=== PATIENT | female | born 1980 | race Caucasian/White ===

== ENCOUNTER 2020-09-17 09:27 | Outpatient (REF) | payer OTHER, SELFPAY ==
[2020-09-17 11:32] LABS: Lithium 0.42 mmol/L (0.60-1.20)
[2020-09-17 11:45] LABS: Anion Gap 13 (12-20); Blood Urea Nitrogen 9 mg/dL (9-16); Calcium 9.3 mg/dL (8.4-10.2); Carbon Dioxide 25 mmol/L (22-29); Chloride 106 mmol/L (96-108); Estimated Glomerular Filt Rate > 60; Glucose Random 106 mg/dL (60-115); Potassium 4.4 mmol/L (3.3-5.1); Sodium 140 mmol/L (135-145)
[2020-09-17 12:12] LABS: Thyroid Stimulating Hormone 2.59 uIU/mL (0.32-4.0)
== END 2020-09-17 09:28 | disposition home or self-care (01) ==
LOC: HO.HMGCLDS 09:27
PROVIDERS: Nurse Practitioner Family; PCP Internal Medicine; Visit Provider Clinical Nurse Specialist Psychiatric/Mental Health, Adult
DX: R51.9 Headache, unspecified (principal); B37.3 Candidiasis of vulva and vagina; Z20.822 Contact with and (suspected) exposure to COVID-19; Z79.899 Other long term (current) drug therapy
CPT/HCPCS: 36415; 80048; 80178; 84443; U0003; U0005

== ENCOUNTER 2020-09-21 21:43 | Emergency (ER) | payer OTHER, SELFPAY ==
--- NOTE | ~2020-09-21 | XR_ITS ---
EXAMINATION: LEFT FOOT AND ANKLE 6 VIEWS CLINICAL INFORMATION: Pain. COMPARISON: 05/09/2020. TECHNIQUE: AP, lateral, oblique views of the left foot were obtained in addition to AP, lateral and oblique views of the left ankle. FINDINGS: There are no fractures or dislocations. There is mild soft tissue swelling overlying the lateral malleolus. No ankle joint effusion is identified. XR/XR foot LT min 3V IMPRESSION: Mild soft tissue swelling. No fracture or dislocation.
--- NOTE | ~2020-09-21 | XR_ITS ---
EXAMINATION: LEFT FOOT AND ANKLE 6 VIEWS CLINICAL INFORMATION: Pain. COMPARISON: 05/09/2020. TECHNIQUE: AP, lateral, oblique views of the left foot were obtained in addition to AP, lateral and oblique views of the left ankle. FINDINGS: There are no fractures or dislocations. There is mild soft tissue swelling overlying the lateral malleolus. No ankle joint effusion is identified. XR/XR ankle LT min 3V IMPRESSION: Mild soft tissue swelling. No fracture or dislocation.
[2020-09-21 22:59] VITALS: BP 102/60; PULSE 86; RESP 14; TEMP 36.9; O2SAT 99; BMI 25.7
[2020-09-22] VITALS: BP 133/67; PULSE 88; RESP 16; TEMP 36.3; O2SAT 96
[2020-09-22] MEDS: Ketorolac Tromethamine 30 MG/ML VIAL IM (00:35)
--- NOTE | 2020-09-22 01:01 | ED.LOWEXIN ---
HPI - Extremity Injury (Lower) General Chief Complaint: Extremity Injury, Lower Stated Complaint: ANKLE INJ Time Seen by Provider: 09/21/20 23:34 Source: patient Mode of arrival: ambulatory Limitations: no limitations History of Present Illness HPI Narrative: Patient presents to ED for left foot pain. Patient states pain on plantar aspect of foot that started today. Patient denies any recent trauma to the foot, swelling, redness, calf pain, coughing up blood, fever, chills, chest pain, or shortness of breath Related Data Previous Rx's Medication Instructions Recorded loratadine 10 mg tablet 10 mg PO DAILY #30 tab 06/16/20 levothyroxine 25 mcg tablet 25 mcg PO QAM #30 tab 07/14/20 omeprazole 20 mg capsule,delayed 20 mg PO QAM #30 cap 07/14/20 release fluconazole 150 mg tablet 150 mg PO Q3D #2 tab 09/17/20 tramadol 50 mg PO Q8H PRN #9 tab 09/22/20 Allergies Allergy/AdvReac Type Severity Reaction Status Date / Time ibuprofen [IBUPROFEN] AdvReac Unknown LITHIUM Verified 09/22/20 00:35 REACTION pollen Allergy Unknown Itchy Eyes Uncoded 09/21/20 22:59 Seafood Allergy Unknown UNKNOWN Uncoded 05/01/20 14:59 Review of Systems Review of Systems: Yes all other systems are reviewed and are negative Constitutional: Constitutional: Reports as per HPI and Reports no additional constitutional complaints Eyes: Eyes: Reports as per HPI and Reports no additional eye complaints ENT: Reports system reviewed and no additional complaints, except as documented and Reports as per HPI Cardiovascular: Cardiovascular: Reports as per HPI and Reports no additional cardiovascular complaints Respiratory: Respiratory: Reports as per HPI and Reports no additional respiratory complaints Gastrointestinal: Gastrointestinal: Reports as per HPI and Reports no additional gastrointestinal complaints Genitourinary: Genitourinary: Reports no additional female genitourinary complaints and Reports as per HPI Musculoskeletal: Musculoskeletal: Reports no additional musculoskeletal complaints and Reports as per HPI Comments: Left foot pain Neurologic: Reports system reviewed and no additional complaints, except as documented and Reports as per HPI Psychiatric: Psychiatric: Reports no additional psychiatric complaints and Reports as per HPI PMFSH Past Medical History Medical History Ankle weakness Lung disease Smoker Social History Social History Smoking Status: Current every day smoker Use of substances other than those prescribed or required for medical reasons: No Advance Directives: No Advance Directives Information Provided: No Physical Exam Vital Signs: Vital Signs: Last Vital Signs Temp 97.3 F 09/22/20 00:00 Pulse 88 09/22/20 00:00 Resp 16 09/22/20 00:00 BP 133/67 09/22/20 00:00 Pulse Ox 96 09/22/20 00:00 Body Mass Index 25.7 Const: General: cooperative, healthy appearing, comfortable, no acute distress, well developed, alert, awake and Physically active Orientation/consciousness: patient oriented x3 HENMT: Head: Yes normal to inspection, Yes No palpable skull fracture present, Yes normocephalic, Yes atraumatic and No abrasion Eyes: General: appearance normal, both eyes and all related structures Neck: Neck: Yes normal visual inspection, Yes full ROM, Yes no lymphadenopathy, Yes no meningeal signs, Yes trachea midline, Yes supple and No tender Chest: Chest palpation & inspection: normal inspection of the chest and normal palpation of entire chest wall Resp: Effort & Inspection: normal respiratory effort and able to speak in complete sentences Auscultation: clear to auscultation bilaterally Cardio: Jugular venous distension: no JVD Heart sounds: S1 normal heart sound present and S2 normal heart sound present GI: Inspection: Yes normal to inspection and No abdominal wall ecchymosis Palpation (GI): Soft to palpation, not firm, nontender, no guarding and not rigid : General: No CVA tenderness and Yes no CVA tenderness Back/Spine/Pelvis: Back: no CVA tenderness and No CVA tenderness Skin: General skin exam: no rashes or lesions noted and elasticity normal Neuro: General: patient oriented x3, no meningeal signs and CN's II-XI intact bilaterally Cranial nerves: Yes CN's II-XII intact bilaterally Extrem: Other: Left lower extremity: Negative for swelling of left lower extremity. Negative for any redness. Negative for any calf pain, or bluish/reddish discoloration of lower extremity. Positive for tenderness on plantar aspect of the foot. Positive for palpable pulses of left foot. Neuro/vascular/motor exam is intact of left foot. Left foot negative for any ulcer, wound, redness, or swelling. Right lower extremity normal with motor/nose/vascular exam intact. Left foot positive for significant arch in the plantar aspect ( patient states this is defect). Psych: Appearance: grossly normal, well kempt and not disheveled Course Course Course Narrative: Left foot pain Reevaluation(s) Reevaluation #1: X-rays negative for any fracture. Different just plantar fasciitis. Physical exam does not indicate DVT, cellulitis, or arterial occlusion. MDM - Extremity Injury (Lower) MDM Narrative Medical decision making narrative: Foot pain. Plantar fasciitis Discharge Plan Discharge Clinical Impression: Foot arch pain Patient Disposition: Home, Self-Care Instructions: Plantar Fasciitis (ED) Additional Instructions: Return to the ED for worsening pain, swelling of lower extremities, calf pain, coughing up blood, redness of lower extremity, fever, chills, or any other concerning symptoms. Please follow-up with your PCP Prescriptions: New tramadol 50 mg tablet 50 mg PO Q8H PRN (Reason: pain) Qty: 9 RF: 0 No Action loratadine 10 mg tablet 10 mg PO DAILY Qty: 30 RF: 1 levothyroxine 25 mcg tablet 25 mcg PO QAM Qty: 30 RF: 4 omeprazole 20 mg capsule,delayed release(DR/EC) 20 mg PO QAM Qty: 30 RF: 4 fluconazole [Diflucan] 150 mg tablet 150 mg PO Q3D Qty: 2 RF: 0 Referrals: Sarah Rodriguez MD [Primary Care Provider] - 2 days (Plantar foot pain. Possible plantar fasciitis. X-ray negative for any fracture, arthritis, heel spurs) Interventions: ED Discharge Assessment Last Done: 09/22/20 01:16 Discharge Date/Time: 09/22/20 01:16 Print Language: Argentine
== END 2020-09-22 01:16 | disposition home or self-care (01) ==
PROVIDERS: Emergency Provider Internal Medicine; PCP Internal Medicine
DX: M79.672 Pain in left foot (principal); M72.2 Plantar fascial fibromatosis; F17.200 Nicotine dependence, unspecified, uncomplicated
CPT/HCPCS: 73610; 73630; 96372; 99284; J1885

== ENCOUNTER 2020-12-03 14:49 | Outpatient (REF) | payer OTHER, SELFPAY ==
[2020-12-04 09:36] LABS: CT PCR NOT DETECTED (Not Detect.); NG PCR NOT DETECTED (Not Detect.)
[2020-12-04 09:53] LABS: BV Int Neg Control Negative (Negative); BV Int Pos Control Positive (Positive)
== END 2020-12-03 14:50 | disposition home or self-care (01) ==
LOC: HO.LAB 14:49
PROVIDERS: Visit Provider Obstetrics & Gynecology
DX: Z01.419 Encounter for gynecological examination (general) (routine) without abnormal findings (principal); R10.9 Unspecified abdominal pain; R14.0 Abdominal distension (gaseous); K59.00 Constipation, unspecified; N39.46 Mixed incontinence; F17.210 Nicotine dependence, cigarettes, uncomplicated; Z11.3 Encounter for screening for infections with a predominantly sexual mode of transmission; Z11.8 Encounter for screening for other infectious and parasitic diseases
CPT/HCPCS: 87480; 87491; 87510; 87591; 87660

== ENCOUNTER 2020-12-19 16:04 | Emergency (ER) | payer OTHER, SELFPAY ==
--- NOTE | ~2020-12-19 | XR_ITS ---
EXAMINATION: BILATERAL FEET CLINICAL INFORMATION: Foot pain and swelling COMPARISON: Left foot films 09/21/2020, 05/09/2020 Right ankle films 04/30/2019 TECHNIQUE: 3 views each foot FINDINGS: Left: There is mild hallux valgus. Mild pes cavum is present. No fracture or dislocation is seen. Right: There is mild hallux valgus. Mild pes cavum is present. No fractures or dislocations are seen. XR/XR foot LT min 3V IMPRESSION: No acute finding in the feet to account for the patient's pain and swelling. Mild hallux valgus and pes cavus is present bilaterally. No interval change when compared to prior studies.
--- NOTE | ~2020-12-19 | XR_ITS ---
EXAMINATION: BILATERAL FEET CLINICAL INFORMATION: Foot pain and swelling COMPARISON: Left foot films 09/21/2020, 05/09/2020 Right ankle films 04/30/2019 TECHNIQUE: 3 views each foot FINDINGS: Left: There is mild hallux valgus. Mild pes cavum is present. No fracture or dislocation is seen. Right: There is mild hallux valgus. Mild pes cavum is present. No fractures or dislocations are seen. XR/XR foot RT min 3V IMPRESSION: No acute finding in the feet to account for the patient's pain and swelling. Mild hallux valgus and pes cavus is present bilaterally. No interval change when compared to prior studies.
[2020-12-19 16:11] VITALS: BP 100/80; PULSE 87; O2SAT 97
[2020-12-19 16:25] VITALS: BP 109/75; PULSE 77; RESP 16; TEMP 36.6; O2SAT 98; BMI 23.5
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
[2020-12-19] MEDS: HYDROcodone Bit/Acetam 5/325 TABLET 1 TAB PO (17:11)
--- NOTE | 2020-12-19 17:13 | PC.NURSE ---
PT WAS SEEN BY VERONICA HARRIS AND MADE AWARE OF ED CARE PLAN MEDICATED CHARTED FOR PAIN AND AMBULATORY TO BATHROOM WITH W WALKER AND SUPERVISION
[2020-12-19 19:23] VITALS: BP 102/57; PULSE 66; RESP 16; TEMP 36.4; O2SAT 98
== END 2020-12-19 20:08 | disposition home or self-care (01) ==
PROVIDERS: Emergency Provider Emergency Medicine
DX: M79.672 Pain in left foot (principal); M79.671 Pain in right foot; R60.0 Localized edema; M54.5 Low back pain; L84 Corns and callosities; F17.200 Nicotine dependence, unspecified, uncomplicated
CPT/HCPCS: 73630; 99283

== ENCOUNTER 2021-01-22 15:47 | Outpatient (REF) | payer OTHER, SELFPAY ==
--- NOTE | ~2021-01-22 | MM_ITS ---
EXAMINATION: MM SCREENING DIGITAL BREAST TOMOSYNTHESIS, BILATERAL CLINICAL INFORMATION: Screening. Asymptomatic. The lifetime risk of breast cancer based on the Tyrer-Cuzick Model is 12.3%. COMPARISON: Mammography: None TECHNIQUE: Digital breast tomosynthesis is performed in both the craniocaudal and mediolateral oblique views along with computer-aided detection (CAD). Synthesized 2D images are generated from the tomosynthesis. FINDINGS: There are scattered areas of fibroglandular density (ACR BI-RADS breast composition Category b). No abnormal dominant mass or suspicious grouping of microcalcifications is seen within the right breast. Within the medial aspect of the left breast approximately 6 cm from the nipple there is a lobular contour density measuring approximately 1.4 x 0.9 cm in size. No associated spiculation or microcalcifications. Just superior to this there is noted to be an intramammary lymph node. Ultrasound examination of the left breast is recommended. MM/MM tomosynthesis screening BI IMPRESSION: Left breast mass lesion for which ultrasound evaluation is recommended. ASSESSMENT: BI-RADS 0: Incomplete - Need Additional Imaging Evaluation RECOMMENDATION: 1. Additional views of the left breast 2. Targeted ultrasound if warranted after review of the additional views. 3. Radiology department staff will contact the patient for additional imaging. This patient's information was entered into a reminder system with a target due date for their next mammogram.
== END 2021-01-22 15:48 | disposition home or self-care (01) ==
LOC: HO.MAMMO 15:47
PROVIDERS: Visit Provider Obstetrics & Gynecology
DX: Z12.31 Encounter for screening mammogram for malignant neoplasm of breast (principal)
CPT/HCPCS: 77063; 77067

== ENCOUNTER 2021-02-06 13:59 | Outpatient (REF) | payer OTHER, SELFPAY ==
--- NOTE | ~2021-02-06 | MM_ITS ---
EXAMINATION: MM DIAGNOSTIC DIGITAL BREAST TOMOSYNTHESIS, LEFT US DIAGNOSTIC ULTRASOUND BREAST, LEFT CLINICAL INFORMATION: Recall from baseline screening for ill-defined nodule upper lateral left breast. COMPARISON: Mammography: 01/22/2021 TECHNIQUE: Digital breast tomosynthesis is performed. 2D images are generated from the tomosynthesis. The following views are obtained: 3-D spot CC, 3-D spot ML Ultrasound left breast is targeted to the medial and upper quadrants. FINDINGS: There are scattered areas of fibroglandular density (ACR BI-RADS breast composition Category b). The additional views confirm a bilobed nodule upper inner quadrant left breast mid depth measuring approximately 1.1 x 0.7 cm. Ultrasound demonstrates bilobed simple cyst versus 2 adjacent cysts 11:00 position 6 cm from nipple with overall size 1.1 x 0.7 x 0.4 cm. There is increased through-transmission of sound and no associated color flow. No solid mass or architectural abnormality. Results are discussed with the patient at time of visit. MM/MM tomosynthesis added views L IMPRESSION: Incidental cyst 11:00 position mid depth 1.1 x 0.7 x 0.4 cm corresponding to finding on recent baseline screening mammography. ASSESSMENT: BI-RADS 2: Benign RECOMMENDATION: Routine annual mammography screening. This patient's information was entered into a reminder system with a target due date for their next mammogram.
== END 2021-02-06 14:00 | disposition home or self-care (01) ==
LOC: HO.MAMMO 13:59
PROVIDERS: Visit Provider Obstetrics & Gynecology
DX: R92.2 Inconclusive mammogram (principal)
CPT/HCPCS: 76642; 77061; 77065

== ENCOUNTER → 2021-03-10 14:06 | Outpatient (BNVA) | payer OTHER, SELFPAY | DX: N39.46 Mixed incontinence (principal) | CPT/HCPCS: 51798; 99202 ==

== ENCOUNTER 2021-04-02 10:02 | Outpatient (REF) | payer OTHER, SELFPAY ==
[2021-04-02 11:42] LABS: Lithium 0.46 mmol/L (0.60-1.20)
[2021-04-02 12:03] LABS: Anion Gap 11 (12-20); Blood Urea Nitrogen 6 mg/dL (9-16); Calcium 9.5 mg/dL (8.4-10.2); Carbon Dioxide 24 mmol/L (22-29); Chloride 109 mmol/L (96-108); Estimated Glomerular Filt Rate > 60; Glucose Fasting 105 mg/dL (60-99); Potassium 4.4 mmol/L (3.3-5.1); Sodium 140 mmol/L (135-145)
[2021-04-02 12:08] LABS: Thyroid Stimulating Hormone 2.76 uIU/mL (0.32-4.0)
== END 2021-04-02 10:03 | disposition home or self-care (01) ==
LOC: HO.HMGCLDS 10:02
PROVIDERS: PCP Internal Medicine; Visit Provider Clinical Nurse Specialist Psychiatric/Mental Health, Adult
DX: Z79.899 Other long term (current) drug therapy (principal)
CPT/HCPCS: 36415; 80048; 80178; 84443

== ENCOUNTER 2021-04-08 12:55 | Outpatient (AMB) | payer OTHER, SELFPAY ==
[2021-04-08 13:07] VITALS: BP 124/64; PULSE 72; TEMP 36.4; BMI 23.5
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
== END 2021-04-08 13:36 | disposition home or self-care (01) ==
LOC: HO.HUSH 12:55
DX: Z13.9 Encounter for screening, unspecified (principal)
CPT/HCPCS: 99213

== ENCOUNTER → 2021-04-08 12:55 | Outpatient (BNVA) | payer OTHER, SELFPAY | DX: N39.46 Mixed incontinence (principal) | CPT/HCPCS: 51798; 99212 ==

== ENCOUNTER 2021-07-13 12:20 | Emergency (ER) | payer OTHER, SELFPAY ==
--- NOTE | ~2021-07-13 | XR_ITS ---
EXAMINATION: LEFT ANKLE AND LEFT FOOT. CLINICAL INFORMATION: Low back pain, status post injury. COMPARISON: None TECHNIQUE: Left ankle 4 views. Left shoulder 3 views. FINDINGS: Left ankle: the ankle mortise and subtalar joints are normal. No visible acute fracture or dislocation seen. The soft tissues are normal. Left toe: There is a nondisplaced fracture proximal and great toe first digit with mild soft tissue swelling. No additional bony abnormality seen. XR/XR ankle LT min 3V IMPRESSION: Nondisplaced fracture proximal end great toe first digit with mild soft tissue swelling. Unremarkable left ankle exam.
--- NOTE | ~2021-07-13 | XR_ITS ---
EXAMINATION: LEFT ANKLE AND LEFT FOOT. CLINICAL INFORMATION: Low back pain, status post injury. COMPARISON: None TECHNIQUE: Left ankle 4 views. Left shoulder 3 views. FINDINGS: Left ankle: the ankle mortise and subtalar joints are normal. No visible acute fracture or dislocation seen. The soft tissues are normal. Left toe: There is a nondisplaced fracture proximal and great toe first digit with mild soft tissue swelling. No additional bony abnormality seen. XR/XR toe LT min 2V IMPRESSION: Nondisplaced fracture proximal end great toe first digit with mild soft tissue swelling. Unremarkable left ankle exam.
[2021-07-13 13:43] VITALS: BP 120/87; PULSE 75; RESP 18; TEMP 36.6; BMI 28.3
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
== END 2021-07-13 15:11 | disposition home or self-care (01) ==
PROVIDERS: Emergency Provider Emergency Medicine
DX: S92.415A Nondisplaced fracture of proximal phalanx of left great toe, initial encounter for closed fracture (principal); W10.9XXA Fall (on) (from) unspecified stairs and steps, initial encounter; Y93.9 Activity, unspecified; Y92.009 Unspecified place in unspecified non-institutional (private) residence as the place of occurrence of the external cause; Y99.9 Unspecified external cause status; Z79.899 Other long term (current) drug therapy
CPT/HCPCS: 73610; 73660; 99283

== ENCOUNTER 2022-01-05 22:09 | Emergency (ER) | payer OTHER, SELFPAY ==
--- NOTE | 2022-01-05 | ECG_ITS ---
Test Reason : cp Blood Pressure : / mmHG Vent. Rate : 064 BPM Atrial Rate : 064 BPM P-R Int : 138 ms QRS Dur : 086 ms QT Int : 410 ms P-R-T Axes : 018 007 094 degrees QTc Int : 422 ms Normal sinus rhythm Nonspecific T wave abnormality Abnormal ECG When compared with ECG of 07-FEB-2020 20:45, Inverted T waves have replaced nonspecific T wave abnormality in Lateral leads Referred By: Generic ED Physician Electronically Signed By:Tae Givens
--- NOTE | ~2022-01-05 | XR_ITS ---
EXAMINATION: XR CHEST CLINICAL INFORMATION: Chest pain COMPARISON: Chest x-ray 02/07/2020 TECHNIQUE: Frontal view of the chest was obtained. 11:35 PM FINDINGS: No significant abnormality is noted involving the heart, lungs, mediastinum, bony thorax or soft tissues. XR/XR chest 1V IMPRESSION: Unremarkable examination.
[2022-01-05 22:18] VITALS: BP 129/78; PULSE 65; RESP 18; TEMP 36.6; O2SAT 96; BMI 25.0
[2022-01-05 22:40] LABS: MANUAL DIFF FLAG NO
[2022-01-05 22:42] LABS: Basophils Percent Auto 0.3 % (0-2); Eosinophils Absolute Auto 0.1 X10*3/uL (0.0-0.4); Eosinophils Percent Auto 1.3 % (0-4); Hematocrit 43.3 % (37.0-47.0); Hemoglobin 14.2 g/dl (12.0-16.0); Imm Gran Abs Auto 0.02 X10*3/uL (0.00-0.03); Imm Gran Pct Auto 0.3 % (0.0-0.4); Lymphocytes Absolute Auto 1.8 X10*3/uL (1.2-4.9); Lymphocytes Percent Auto 29.3 % (20-40); Mean Corpuscular HGB Conc 32.8 g/dl (31.0-35.0); Mean Corpuscular Hemoglobin 31.3 pg (27.0-33.0); Mean Corpuscular Volume 95.4 fL (80.0-98.0); Mean Platelet Volume 10.5 fL (9.4-12.3); Monocytes Absolute Auto 0.4 X10*3/uL (0.1-1.2); Monocytes Percent Auto 7.1 % (2-11); Neutrophils Absolute Auto 3.9 x10*3/uL (2.0-8.3); Neutrophils Percent Auto 61.7 % (45-73); Platelet Count 227 X10*3/uL (160-400); Red Blood Count 4.54 X10*6/uL (4.20-5.50); Red Cell Distribution Width 12.7 % (11.0-16.0); White Blood Count 6.2 X10*3/uL (4.8-10.8)
[2022-01-05 23:02] LABS: Alanine Aminotransferase 9 U/L (0-31); Albumin Level 4.2 g/dL (3.5-5.0); Alkaline Phosphatase 85 U/L (39-117); Anion Gap 11 (12-20); Aspartate Amino Transferase 14 U/L (5-31); Bilirubin Total 0.3 mg/dL (0.0-1.0); Blood Urea Nitrogen 5 mg/dL (9-16); Calcium 9.7 mg/dL (8.4-10.2); Carbon Dioxide 26 mmol/L (22-29); Chloride 107 mmol/L (96-108); Creatinine Clr Calc Pharmacy 65.9; Estimated Glomerular Filt Rate > 60; Glucose Random 110 mg/dL (60-115); Potassium 4.5 mmol/L (3.3-5.1); Sodium 139 mmol/L (135-145); Total Protein 6.7 g/dL (6.5-8.0)
[2022-01-05 23:07] LABS: Troponin-I High Sensitivity < 3.5 ng/L (<3.5-17.0)
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
[2022-01-06] MEDS: LORazepam 2 MG/ML VIAL 0.5 MG IVPUSH (00:33)
[2022-01-06] MEDS: guaiFEN/Codeine SF 200/20/10ML 10 ML LIQUID PO (00:35)
[2022-01-06 00:43] LABS: COVID-19 Test Negative (Negative); IDNOW Serial# 16C4AD1C; Influenza A Negative (Negative); Influenza B2 Negative (Negative)
--- NOTE | 2022-01-06 01:30 | PC.NURSE ---
Per Dr. Cobian, pt okay to discharge once she wakes up.
[2022-01-06] MEDS: Azithromycin 500 MG TABLET PO (02:08)
[2022-01-06 02:15] VITALS: BP 129/63; PULSE 70; RESP 18; TEMP 37.1; O2SAT 99
== END 2022-01-06 02:16 | disposition home or self-care (01) ==
PROVIDERS: Emergency Provider Internal Medicine
DX: J40 Bronchitis, not specified as acute or chronic (principal); R07.89 Other chest pain; R05.9 Cough, unspecified; R20.0 Anesthesia of skin; F41.9 Anxiety disorder, unspecified; Z20.822 Contact with and (suspected) exposure to COVID-19; Z79.899 Other long term (current) drug therapy
CPT/HCPCS: 36415; 71045; 80053; 84484; 85025; 87502; 87635; 93005; 96374; 99282; 99284; J2060

== ENCOUNTER 2022-02-09 18:10 | Emergency (ER) | payer OTHER, SELFPAY ==
--- NOTE | ~2022-02-09 | XR_ITS ---
EXAMINATION: XR shoulder RT min 2V, XR elbow RT 2V CLINICAL INFORMATION: Reason for Exam pain/limited ROM COMPARISON: Right shoulder radiographs 05/01/2014 TECHNIQUE: AP and lateral views right elbow; 3 views right shoulder FINDINGS: Right elbow: No fracture, dislocation, or elbow joint effusion. The joint spaces are maintained. No enthesophyte formation. No osteophytes. No osseous lesion. Right shoulder: No fracture or dislocation. Glenohumeral joint space and acromiohumeral interval are maintained. No periarticular calcifications. AC joint is congruent and intact. Visualized right upper lung is grossly clear. XR/XR elbow RT 2V IMPRESSION: 1. No acute osseous injury or other osseous abnormality at the right elbow or shoulder.
--- NOTE | ~2022-02-09 | XR_ITS ---
EXAMINATION: XR HUMERUS, RIGHT CLINICAL INFORMATION: Injury COMPARISON: None TECHNIQUE: AP and lateral views of the right humerus. FINDINGS: The bones and soft tissues are normal. No fracture. Imaged portions of the shoulder and elbow are unremarkable. XR/XR humerus RT IMPRESSION: Normal right humerus.
--- NOTE | ~2022-02-09 | XR_ITS ---
EXAMINATION: XR shoulder RT min 2V, XR elbow RT 2V CLINICAL INFORMATION: Reason for Exam pain/limited ROM COMPARISON: Right shoulder radiographs 05/01/2014 TECHNIQUE: AP and lateral views right elbow; 3 views right shoulder FINDINGS: Right elbow: No fracture, dislocation, or elbow joint effusion. The joint spaces are maintained. No enthesophyte formation. No osteophytes. No osseous lesion. Right shoulder: No fracture or dislocation. Glenohumeral joint space and acromiohumeral interval are maintained. No periarticular calcifications. AC joint is congruent and intact. Visualized right upper lung is grossly clear. XR/XR shoulder RT min 2V IMPRESSION: 1. No acute osseous injury or other osseous abnormality at the right elbow or shoulder.
[2022-02-09 19:48] VITALS: BP 126/74; PULSE 66; RESP 15; TEMP 36.2; O2SAT 97; BMI 25.0
[2022-02-09] MEDS: Acetaminophen 325 MG TABLET 650 MG PO (19:54)
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
== END 2022-02-10 | disposition home or self-care (01) ==
PROVIDERS: Emergency Provider Emergency Medicine; PCP Internal Medicine
DX: S53.401A Unspecified sprain of right elbow, initial encounter (principal); S43.401A Unspecified sprain of right shoulder joint, initial encounter; M25.511 Pain in right shoulder; W01.0XXA Fall on same level from slipping, tripping and stumbling without subsequent striking against object, initial encounter; Y93.9 Activity, unspecified; Y92.9 Unspecified place or not applicable; Y99.9 Unspecified external cause status; Z79.899 Other long term (current) drug therapy
CPT/HCPCS: 73030; 73060; 73070; 99283

== ENCOUNTER 2022-09-19 16:44 | Emergency (ER) | payer OTHER, SELFPAY ==
--- NOTE | ~2022-09-19 | XR_ITS ---
EXAMINATION: XR CLAVICLE, RIGHT CLINICAL INFORMATION: Pain following fall COMPARISON: None TECHNIQUE: 2 views of right clavicle. FINDINGS: The clavicle is intact. The bones and soft tissues are normal. No fracture. Acromioclavicular joint alignment is anatomic. XR/XR clavicle RT IMPRESSION: Normal right clavicle.
--- NOTE | ~2022-09-19 | XR_ITS ---
EXAMINATION: RIGHT HUMERUS AND RIGHT SHOULDER CLINICAL INFORMATION: Pain following fall COMPARISON: None TECHNIQUE: 3 views of right humerus and 3 views of right shoulder FINDINGS: Bones are well-mineralized there is no evidence of fracture or dislocation. Soft tissues are normal XR/XR humerus RT IMPRESSION: No fracture seen
--- NOTE | ~2022-09-19 | XR_ITS ---
EXAMINATION: XR ELBOW, RIGHT CLINICAL INFORMATION: Pain COMPARISON: None TECHNIQUE: AP, lateral, and oblique views of the right elbow. FINDINGS: The bones and soft tissues are normal. No fracture or joint effusion. Alignment is anatomic. Joint spaces are maintained. XR/XR elbow RT min 3V IMPRESSION: Normal right elbow.
--- NOTE | ~2022-09-19 | XR_ITS ---
EXAMINATION: RIGHT HUMERUS AND RIGHT SHOULDER CLINICAL INFORMATION: Pain following fall COMPARISON: None TECHNIQUE: 3 views of right humerus and 3 views of right shoulder FINDINGS: Bones are well-mineralized there is no evidence of fracture or dislocation. Soft tissues are normal XR/XR shoulder RT min 2V IMPRESSION: No fracture seen
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
[2022-09-19 17:05] VITALS: BP 136/83; PULSE 65; RESP 18; TEMP 36.2; O2SAT 99; BMI 27.4
== END 2022-09-19 18:51 | disposition home or self-care (01) ==
LOC: HO.ED 18:47
PROVIDERS: Emergency Provider Internal Medicine
DX: S46.911A Strain of unspecified muscle, fascia and tendon at shoulder and upper arm level, right arm, initial encounter (principal); M79.621 Pain in right upper arm; W01.0XXA Fall on same level from slipping, tripping and stumbling without subsequent striking against object, initial encounter; Y93.9 Activity, unspecified; Y92.9 Unspecified place or not applicable; Y99.9 Unspecified external cause status
CPT/HCPCS: 73000; 73030; 73060; 73080; 99282; 99283

== ENCOUNTER 2023-07-29 11:42 | Outpatient (AMB) | payer OTHER, SELFPAY ==
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
[2023-07-29 12:21] VITALS: BP 100/68; PULSE 62; O2SAT 99; BMI 28.0
== END 2023-07-29 15:31 | disposition home or self-care (01) ==
PROVIDERS: Visit Provider Internal Medicine
DX: H91.93 Unspecified hearing loss, bilateral (principal)
CPT/HCPCS: 99213

== ENCOUNTER 2023-08-25 10:04 | Outpatient (REF) | payer OTHER, SELFPAY ==
[2023-08-25 13:33] LABS: Anion Gap 10 (12-20); Blood Urea Nitrogen 8 mg/dL (9-16); Calcium 9.9 mg/dL (8.4-10.2); Carbon Dioxide 28 mmol/L (22-29); Chloride 107 mmol/L (96-108); Estimated Glomerular Filt Rate > 60; Glucose Random 107 mg/dL (60-115); Potassium 4.3 mmol/L (3.3-5.1); Sodium 141 mmol/L (135-145)
[2023-08-25 13:36] LABS: Lithium 0.53 mmol/L (0.60-1.20)
[2023-08-25 13:49] LABS: Thyroid Stimulating Hormone 2.83 uIU/mL (0.32-4.0)
== END 2023-08-25 10:05 | disposition home or self-care (01) ==
LOC: HO.HMGCLDS 10:04
PROVIDERS: PCP Internal Medicine; Visit Provider Clinical Nurse Specialist Psychiatric/Mental Health, Adult
DX: Z79.899 Other long term (current) drug therapy (principal)
CPT/HCPCS: 36415; 80048; 80178; 84443

== ENCOUNTER 2023-09-28 15:41 | Outpatient (REF) | payer OTHER, SELFPAY | END 2023-09-28 15:42 | disposition home or self-care (01) | LOC: HO.SH 15:41 | PROVIDERS: Visit Provider Internal Medicine | DX: Z01.10 Encounter for examination of ears and hearing without abnormal findings (principal); H90.12 Conductive hearing loss, unilateral, left ear, with unrestricted hearing on the contralateral side | CPT/HCPCS: 92557; 92567 ==

== ENCOUNTER 2024-11-01 13:44 | Outpatient (AMB) | payer OTHER, SELFPAY ==
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
[2024-11-01 13:52] VITALS: BP 118/70; PULSE 83; TEMP 37.1; O2SAT 96
== END 2024-11-01 14:26 | disposition home or self-care (01) ==
PROVIDERS: PCP Internal Medicine; Visit Provider Physician Assistant
DX: B34.9 Viral infection, unspecified (principal); H66.002 Acute suppurative otitis media without spontaneous rupture of ear drum, left ear

== ENCOUNTER 2024-11-01 13:44 | Outpatient (REF) | payer OTHER, SELFPAY ==
--- NOTE | ~2024-11-01 | XR_ITS ---
EXAMINATION: XR CHEST 2 VIEWS HISTORY: R05.9 - Cough, unspecified COMPARISON: Comparison is made with the prior examination dated 01/05/2022. FINDINGS: PA and lateral views of the chest are submitted. There are scattered groundglass and interstitial opacities in the right upper and left midlung zones. This may represent viral or atypical pneumonia. There is no pleural effusion, pneumothorax, or pulmonary vascular congestion. The heart is normal in size. There is degenerative disc disease of the spine. XR/XR chest 2V IMPRESSION: Scattered groundglass and interstitial opacities which may represent viral or atypical pneumonia. Electronically signed by: Rahul Posadas MD 11/01/2024 02:51 PM EDT
[2024-11-01 20:24] LABS: Influenza A PCR NEGATIVE (Negative); Influenza B PCR NEGATIVE (Negative); Resp Syncy Virus RNA Qual PCR NEGATIVE (Negative); SARS COV2 PCR INHOUSE NEGATIVE (Negative)
== END 2024-11-01 13:45 | disposition home or self-care (01) ==
LOC: HO.LAB 13:44
PROVIDERS: PCP Internal Medicine; Visit Provider Physician Assistant
DX: B34.9 Viral infection, unspecified (principal); H66.002 Acute suppurative otitis media without spontaneous rupture of ear drum, left ear; R05.9 Cough, unspecified; R09.89 Other specified symptoms and signs involving the circulatory and respiratory systems
CPT/HCPCS: 0241U; 71046; 99212

== ENCOUNTER → 2024-11-01 14:13 | Outpatient (BNV) | payer OTHER, SELFPAY | PROVIDERS: PCP Internal Medicine; Visit Provider Radiology Diagnostic Radiology | DX: R05.9 Cough, unspecified (principal) | CPT/HCPCS: 71046 ==

== ENCOUNTER 2025-01-31 15:14 | Outpatient (AMB) | payer OTHER, SELFPAY ==
[2025-01-31 15:22] VITALS: BP 100/68; PULSE 80; TEMP 37; O2SAT 97; BMI 27.7
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
== END 2025-01-31 16:06 | disposition home or self-care (01) ==
PROVIDERS: PCP Internal Medicine; Visit Provider Nurse Practitioner Family
DX: S80.01XA Contusion of right knee, initial encounter (principal)

== ENCOUNTER 2025-01-31 15:14 | Outpatient (REF) | payer OTHER, SELFPAY ==
--- NOTE | ~2025-01-31 | XR_ITS ---
EXAMINATION: XR KNEE, RIGHT CLINICAL INFORMATION: S80.01XA - Contusion of right knee, initial encounter COMPARISON: None available. TECHNIQUE: Four views of the right knee. FINDINGS: No fracture or joint effusion. Alignment is anatomic. Joint spaces are maintained. No abnormal soft tissue calcification. XR/XR knee RT 4V IMPRESSION: No acute bony abnormalities. No joint effusion. Electronically signed by: Maynor Marina MD 01/31/2025 04:16 PM EDT
== END 2025-01-31 15:15 | disposition home or self-care (01) ==
LOC: HO.HMGCX 15:14
PROVIDERS: PCP Internal Medicine; Visit Provider Nurse Practitioner Family
DX: S80.01XA Contusion of right knee, initial encounter (principal)
CPT/HCPCS: 73564; 99212

== ENCOUNTER → 2025-01-31 15:57 | Outpatient (BNV) | payer OTHER, SELFPAY | PROVIDERS: PCP Internal Medicine; Visit Provider Radiology Diagnostic Radiology | DX: S80.01XA Contusion of right knee, initial encounter (principal) | CPT/HCPCS: 73564 ==

== ENCOUNTER 2025-05-21 17:48 | Emergency (ER) | payer OTHER, SELFPAY ==
[2025-05-21 17:55] VITALS: BP 130/73; PULSE 86; RESP 18; TEMP 37; O2SAT 97; BMI 27.9
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
[2025-05-21 18:18] LABS: MANUAL DIFF FLAG NO
[2025-05-21 18:27] LABS: Hematocrit 41.9 % (37.0-47.0); Hemoglobin 13.8 g/dl (12.0-16.0); Imm Gran Abs Auto 0.02 X10*3/uL (0.00-0.03); Imm Gran Pct Auto 0.3 % (0.0-0.4); Lymphocytes Absolute Auto 2.1 X10*3/uL (1.2-4.9); Mean Corpuscular HGB Conc 32.9 g/dl (31.0-35.0); Mean Corpuscular Hemoglobin 30.7 pg (27.0-33.0); Mean Corpuscular Volume 93.3 fL (80.0-98.0); NRBC Abs Auto 0.000 X10*3/uL (0.0-0.012); NRBC Pct Auto 0.0 /100WBC (0.0-0.2); Platelet Count 267 X10*3/uL (160-400); Red Blood Count 4.49 X10*6/uL (4.20-5.50); White Blood Count 7.3 X10*3/uL (4.8-10.8)
[2025-05-21 18:33] LABS: Alanine Aminotransferase 12 U/L (0-31); Albumin Level 4.5 g/dL (3.5-5.0); Alkaline Phosphatase 76 U/L (39-117); Anion Gap 12 (12-20); Aspartate Amino Transferase 17 U/L (5-31); Blood Urea Nitrogen 10 mg/dL (9-16); Calcium 9.9 mg/dL (8.4-10.2); Carbon Dioxide 24 mmol/L (22-29); Chloride 108 mmol/L (96-108); Creatinine Clr Calc Pharmacy 70.5; Estimated Glomerular Filt Rate > 60; Lipase 43 U/L (8-78); Magnesium 2.1 mg/dL (1.6-2.6); Potassium 4.1 mmol/L (3.3-5.1); Sodium 140 mmol/L (135-145); Total Protein 6.8 g/dL (6.5-8.0)
[2025-05-21 21:42] LABS: Appearance Urine Clear; Glucose Urine UA Negative (Negative); PH 7.5 (5.0-9.0); Specific Gravity - Urine <= 1.005 (1.005-1.025); UMIC TRIGGER UACC YES
== END 2025-05-21 23:31 | disposition left against medical advice (07) ==
LOC: HO.ED 23:08
PROVIDERS: Physician Assistant; Emergency Provider Emergency Medicine; PCP Internal Medicine
DX: R10.30 Lower abdominal pain, unspecified (principal)
CPT/HCPCS: 36415; 80053; 81001; 83690; 83735; 84702; 85025; 99282; 99283